=== PATIENT | male | born 1960 | race Caucasian/White ===

== ENCOUNTER 2024-01-13 12:34 | Outpatient (OUT) | payer MEDICARE, SELFPAY ==
--- NOTE | 2024-01-13 12:49 | MR_ITS ---
The [address] [address] Patient Name: OSKAR HOLLOWAY MRN: [id number] date: 1960 Sex: M Assigned Patient Location: MRI Current Patient Location: MRI Accession/Order Number: [id number] Exam Date: 01/13/2024 13:00 Report Date: 01/17/2024 14:31 At the request of: GENESIS STUART Procedure: MR pelvis wo con MRI OF THE PELVIS WITHOUT CONTRAST COMPARISON: No relevant comparisons HISTORY: Burning with urination. Attention prostate gland. TECHNIQUE: Axial and coronal MR imaging was performed using multiple pulse sequences. FINDINGS: The prostate gland measures 3.4 x 3.2 x 2.9 cm. Estimated gland weight equals 16 g. There is heterogeneity to the signal of the prostate gland. There are a few small foci of low T2 signal suggesting the presence of calcifications. These are seen predominantly towards the base of the gland at the midline and to the patient's left. There is some degree of heterogeneity in the signal intensity of the prostate gland adjacent to the foci of calcification, however, no obvious dominant mass is seen. The seminal vesicles are bilaterally symmetric and considered within normal limits. The mcallister of the urinary bladder have mild thickening circumferentially without focal mass. There are 2 diverticula located at the urinary bladder on the left. The more posterior measures 9 mm in size with another anterior to this measuring 7 mm. There is unremarkable appearance to the included rectosigmoid colon and small bowel loops although detail is somewhat limited by patient breathing motion artifact. There is no definite pelvic lymphadenopathy. 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 There does however appear to be a left hip joint effusion with a component of this fluid extending anteriorly to reside immediately posterior to the left common femoral artery and vein. This collection measures 23 mm. There is a moderate right-sided hydrocele seen in the included scrotum. The included lower lumbar spine demonstrates degenerative spondylosis. 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 The bone marrow and surrounding soft tissue structures are otherwise unremarkable. MR/MR pelvis wo con IMPRESSION: 1. Normal prostate gland size with an estimated gland weight of 16 g 2. Foci of calcification in the prostate gland towards the base and slightly to left of midline. There is also mildly heterogeneous signal in the peripheral zone here without an obvious focal measurable mass. Depending on the level of clinical concern including PSA levels, a dedicated prostate MRI pre and postcontrast would be better able to evaluate for an underlying mass. Otherwise, considering the patient's symptomatology, prostatitis would deserve consideration 3. Moderate right hydrocele. 4. Mild circumferential thickening of the bladder mcallister. This finding is nonspecific. This can be seen with BPH, although the patient's prostate gland size is normal. Other etiologies to consider would include acute or chronic cystitis 5. Two bladder diverticula on the left measuring 9 and 7 mm. Electronically authenticated by: STEVEN JIANG Date: 01/17/2024 14:31
== END 2024-01-13 12:35 | disposition home or self-care (01) ==
LOC: MRI 12:37
PROVIDERS: PCP Internal Medicine; Visit Provider Internal Medicine
DX: R30.0 Dysuria (principal); R97.20 Elevated prostate specific antigen [PSA]
CPT/HCPCS: 72195